=== PATIENT | male | born 1980 ===

== ENCOUNTER 2023-12-14 08:10 | Day surgery (SDC) | payer BC ==
[~2023-12-14] VITALS: Ht 177.8 cm; Wt 104.8 kg
[~2023-12-14 08:10] MED LIST: Lactated Ringer's 1,000 ML IV SCH
[2023-12-14] MEDS ORDERED: Benzocaine Oral Spray 0.5ML UD ONE (08:21)
[2023-12-14] MEDS ORDERED: Lactated Ringer's 1,000 ML IV SCH (09:35)
[2023-12-14] MEDS ORDERED: Atropine Sulfate 0.1 MG/ML 10ML SYR IV PRN (09:35)
[2023-12-14] MEDS ORDERED: Lidocaine HCl 1% 5 ML SYR INJ ONE (09:35)
[2023-12-14 09:39] VITALS: BP 131/85; BP 1313/85
[2023-12-14] MEDS ORDERED: Albuterol 2.5 MG/3 ML VIAL INH PRN (09:40)
--- NOTE | 2023-12-14 09:53 | NUR ---
12/14/23 [address] PEREZ; SEE ANESTHESIA RECORDS.
[2023-12-14] MEDS ORDERED: propofoL 20 ML IV ONE (09:59)
[2023-12-14] MEDS ORDERED: propofoL 40 ML IV ONE (10:14)
[2023-12-14 10:43] VITALS: BP 117/75
--- NOTE | 2023-12-14 11:03 | NUR ---
Discharge instructions reviewed with patient. Patient verbalizes understanding. Copy given to patient to take home. Discharged via wheelchair to private car for ride home W/ SPOUSE. PT BELONGINGS RETURNED TO PT.
== END 2023-12-14 22:55 | disposition home or self-care (01) ==
LOC: ORSCMMR 08:10 → ORD 10:00 → ORSCMMR 10:00
PROVIDERS: Internal Medicine Gastroenterology
PROC: 0DBM8ZX Excision of Descending Colon, Via Natural or Artificial Opening Endoscopic, Diagnostic (ICD-10-PCS; principal; 2023-12-14 10:00)
PROC: 0DB98ZX Excision of Duodenum, Via Natural or Artificial Opening Endoscopic, Diagnostic (ICD-10-PCS; principal; 2023-12-14 10:00)
PROC: 0DB68ZX Excision of Stomach, Via Natural or Artificial Opening Endoscopic, Diagnostic (ICD-10-PCS; principal; 2023-12-14 10:00)
PROC: 0DBN8ZX Excision of Sigmoid Colon, Via Natural or Artificial Opening Endoscopic, Diagnostic (ICD-10-PCS; principal; 2023-12-14 10:00)
DX: R10.13 Epigastric pain (principal); K21.9 Gastro-esophageal reflux disease without esophagitis; Z12.11 Encounter for screening for malignant neoplasm of colon; K63.5 Polyp of colon; D12.4 Benign neoplasm of descending colon; Z87.11 Personal history of peptic ulcer disease; Z87.898 Personal history of other specified conditions; G47.33 Obstructive sleep apnea (adult) (pediatric); J45.909 Unspecified asthma, uncomplicated; R61 Generalized hyperhidrosis; Z87.891 Personal history of nicotine dependence; E66.9 Obesity, unspecified; Z68.33 Body mass index [BMI] 33.0-33.9, adult; Z79.899 Other long term (current) drug therapy
CPT/HCPCS: 88305; 88342; A9270; J2704; J7120